=== PATIENT | female | born 1945 | race Caucasian/White ===

== ENCOUNTER → 2016-12-29 | Outpatient (CLI) | payer MEDICARE ==
--- NOTE | 2017-01-03 07:50 | MM ---
Reason for exam: screening (asymptomatic). Last mammogram was performed 2 years ago. History: Patient is postmenopausal. Took hormonal contraceptives for 6 months beginning at age 21. Took estrogen for 13 years beginning at age 43. Took progesterone for 13 years beginning at age 43. Physical Findings: A clinical breast exam by your physician is recommended on an annual basis and results should be correlated with mammographic findings. MG 3D Screening Mammo W/Cad Bilateral CC and MLO view(s) were taken. Prior study comparison: December 22, 2014, bilateral MG screening mammo w CAD. December 17, 2013, bilateral MG screening mammo w CAD. There are scattered fibroglandular densities. No significant changes when compared with prior studies. ASSESSMENT: Benign, BI-RAD 2 RECOMMENDATION: Routine screening mammogram of both breasts in 1 year.
== END | disposition home or self-care (01) ==
LOC: RADMAMWWP 11:21
PROVIDERS: ATTEND Family Medicine
DX: Z12.31 Encounter for screening mammogram for malignant neoplasm of breast (principal)
CPT/HCPCS: 77063; G0202

== ENCOUNTER → 2019-12-09 | Outpatient (CLI) | payer MEDICARE ==
--- NOTE | 2019-12-11 11:31 | MM ---
Reason for exam: screening (asymptomatic). Last mammogram was performed 2 years and 11 months ago. History: Patient is postmenopausal. Took hormonal contraceptives for 6 months beginning at age 21. Took estrogen for 13 years beginning at age 43. Took progesterone for 13 years beginning at age 43. Physical Findings: A clinical breast exam by your physician is recommended on an annual basis and results should be correlated with mammographic findings. MG 3D Screening Mammo W/Cad Bilateral CC and MLO view(s) were taken. Prior study comparison: December 29, 2016, bilateral MG 3d screening mammo w/cad. December 22, 2014, bilateral MG screening mammo w CAD. There are scattered fibroglandular densities. No significant changes when compared with prior studies. ASSESSMENT: Benign, BI-RAD 2 RECOMMENDATION: Routine screening mammogram of both breasts in 1 year.
--- NOTE | 2019-12-11 16:10 | BD ---
EXAMINATION TYPE: Axial Bone Density DATE OF EXAM: 12/09/2019 COMPARISON: NONE CLINICAL HISTORY: 74-year-old female postmenopausal screening Height: 66.5 Weight: 237.1 FRAX RISK QUESTIONS: Alcohol (3 or more units per day): no Family History (Parent hip fracture): no Glucocorticoids (More than 3mos): no (Ex: prednisone, prednisolone, methylprednisolone, dexamethasone, and hydrocortisone). History of Fracture in Adulthood: yes Secondary Osteoporosis: 1. Type 1 Diabetes: no 2. Hyperthyroidism: no 3. Menopause before 45: yes 4. Malnutrition: no 5. Chronic liver disease: no Rheumatoid Arthritis: no Current Tobacco Use: no RISK FACTORS HISTORY OF: History of Wrist Fracture: yes-left When: 5 years ago Family History of Osteoporosis: yes Active: no Diet low in dairy products/other sources of calcium: yes Postmenopausal woman: age 43 Lost more than 2 inches in height since high school: yes Frequent falls: no MEDICATIONS: gabapentin, losartan, prevacid, glaucoma meds Osteoporosis Medications: fosamax How Lon years Additional Medications: Additional History: EXAM MEASUREMENTS: Bone mineral densitometry was performed using the Vtap System. Bone mineral density as measured about the Lumbar spine is: ----- L1-L4(G/cm2): 1.383 T Score Values are as follows: ----- L2: 3.4 ----- L3: 2.3 ----- L4: 1.3 ----- L1-L4: 1.7 Bone mineral density has: increased 8.1 % since study of: 11.13.2009 Bone mineral density about the R hip (g/cm2): 0.897 Bone mineral density about the L hip (g/cm2): 0.849 T Score values are as follows: -----R Neck: -1.0 -----L Neck: -1.4 -----R Total: 0.0 -----L Total: -0.1 Bone mineral density has: decreased -6.4 % since study of: 11.13.2009 IMPRESSION: Osteopenia (T Score between -2.5 and -1). There is slightly increased risk of fracture and the patient may be considered for treatment. Re-Screen 2-5 years. NOTE: T-SCORE=SD OF THE YOUNG ADULT MEAN.
== END | disposition home or self-care (01) ==
LOC: RADMAMWWP 15:02
PROVIDERS: ATTEND Family Medicine
DX: Z12.31 Encounter for screening mammogram for malignant neoplasm of breast (principal); M85.80 Other specified disorders of bone density and structure, unspecified site; Z78.0 Asymptomatic menopausal state
CPT/HCPCS: 77063; 77067; 77080

== ENCOUNTER → 2019-12-17 | Outpatient (CLI) | payer MEDICARE ==
[~2019-12-17] MED LIST: SODIUM CHLORIDE 0.9% 500 ML 500 ML in EMPTY BAG 1 BAG IV PRN; ZOLEDRONIC ACID 5 MG in SODIUM CHLORIDE 0.9% 100 ML IV NR
[2019-12-17 12:51] VITALS: BP 157/83; PULSE 81; RESP 16; TEMP 97.9
== END | disposition home or self-care (01) ==
LOC: PROCWHC3 12:17
PROVIDERS: ATTEND Family Medicine
DX: M81.0 Age-related osteoporosis without current pathological fracture (principal)
CPT/HCPCS: 96365; J3489

== ENCOUNTER → 2020-12-09 | Outpatient (CLI) | payer MEDICARE ==
--- NOTE | 2020-12-09 16:52 | BD ---
EXAMINATION TYPE: Axial Bone Density DATE OF EXAM: 12/09/2020 COMPARISON: 12.09.2019 CLINICAL HISTORY: 75 YR OLD FEMALE......ICD-10 CODE: Z78.0 ASYMPT. MENOPAUSAL STATE Height: 65.2 Weight: 233 FRAX RISK QUESTIONS: History of Fracture in Adulthood: YES Secondary Osteoporosis: YES 3. Menopause before 45: YES RISK FACTORS HISTORY OF: History of Wrist Fracture: LT WRIST AN ADULT Family History of Osteoporosis: YES, SISTER, POSSIBLY MOM Diet low in dairy products/other sources of calcium: YES Postmenopausal woman: YES, AT AGE 43, ERT FOR 13 YRS Lost more than 2 inches in height since high school: YES Frequent falls: YES Poor Health: YES Hyperparathyroidism: NO Adrenal Insufficiency: NO MEDICATIONS: Prednisone or other steroids: NONE NOW.... IN THE PAST YES, Osteoporosis Medications: YES, RECLAST YRLY... FOR 2 YRS Additional Medications: BP MEDS, REFLUX, LIPITOR, VIT D AND CALCIUM. GABAPENTIN 3 TIMES A DAY Additional History: NEUROPATHY, CHOLESTEROL, HYPERTENSION, SCLERODERMA CREST... EXAM MEASUREMENTS: Bone mineral densitometry was performed using the [employer] System. Bone mineral density as measured about the Lumbar spine is: ----- L1-L4(G/cm2): 1.356 T Score Values are as follows: ----- L1: 0.4 ----- L2: 1.8 ----- L3: 1.6 ----- L4: 2.0 ----- L1-L4: 1.5 Bone mineral density has: Decreased -3.7% since study of: 12.09.2019 Bone mineral density about the R hip (g/cm2): 1.014 Bone mineral density about the L hip (g/cm2): 0.986 T Score values are as follows: -----R Neck: -1.1 -----L Neck: -1.4 -----R Total: 0.0 -----L Total: -0.2 Bone mineral density has: Decreased -0.2% since study of: 12.09.2019 FRAX%s: THERE IS A 22.6% CHANCE FOR A MAJOR OSTEOPOROTIC FX AND A 4.1% FOR HIP.....PROBABILITY FOR FX IN 10 YRS TIME IMPRESSION: Osteopenia (T Score between -2.5 and -1). There is slightly increased risk of fracture and the patient may be considered for treatment. Re-Screen 2-5 years. NOTE: T-SCORE=SD OF THE YOUNG ADULT MEAN.
== END | disposition home or self-care (01) ==
LOC: RADBDWWP 11-17 14:57
PROVIDERS: ATTEND Family Medicine
DX: M85.89 Other specified disorders of bone density and structure, multiple sites (principal)
CPT/HCPCS: 77080

== ENCOUNTER → 2020-12-17 | Outpatient (CLI) | payer MEDICARE ==
[2020-12-17 13:41] VITALS: BP 101/71; PULSE 73; RESP 16; TEMP 98.7
== END ==
LOC: PROCWHC3 13:05
PROVIDERS: ATTEND Family Medicine
DX: M81.0 Age-related osteoporosis without current pathological fracture (principal); Z88.0 Allergy status to penicillin; Z88.5 Allergy status to narcotic agent; Z88.1 Allergy status to other antibiotic agents
CPT/HCPCS: 96365; J3489

== ENCOUNTER 2021-01-14 10:22 | Inpatient (IN) | payer MEDICARE ==
--- NOTE | 2021-01-14 10:46 | ED ---
General Adult HPI - General Stated complaint: Fall Time Seen by Provider: 01/14/21 10:24 Source: patient, EMS, RN notes reviewed Mode of arrival: EMS Limitations: no limitations - History of Present Illness Initial comments: 75-year-old female with a past medical history of scleroderma, gangrenous right toe, hypertension, GERD, renal disease presents to the emergency room for a chief complaint of fall. Patient reports that she had a fall last night tried to get into the shower. Patient could not get up. Patient reports her is 80 is a chem 30 minutes to get her up into a chair. They then went to bed. This morning patient could not get up out of bed. They tried for quite some time but eventually did call EMS. Patient is complaining of left foot and ankle pain. She is also complaining of tailbone pain. She did hit her head yesterday but is denying headache or neck pain. Patient reports she has been struggling with immobility over the past year. States her legs have been progressively weaker because she has had angioplasty twice and has not been mobile. She is using a walker at home and lives alone with her elderly . Patient has no other complaints at this time including shortness of breath, chest pain, abdominal pain, nausea or vomiting, headache, or visual changes. - Related Data Home Medications Medication Instructions Recorded Confirmed Aspirin 81 mg PO DAILY 12/31/13 12/17/20 Lansoprazole [Prevacid] 30 mg PO DAILY 12/31/13 12/17/20 Loratadine [Claritin] 20 mg PO DAILY 12/31/13 12/17/20 Vitamin B Complex 1 tab PO DAILY 12/31/13 12/17/20 Cholecalciferol [Vitamin D3] 1 tab PO DAILY 09/11/17 12/17/20 Gabapentin [Neurontin] 400 mg PO TID 09/11/17 12/17/20 Losartan [Cozaar] 1 tab PO DAILY 09/11/17 12/17/20 Calcium Carbonate [Calcium] 600 mg PO DAILY 01/02/18 12/17/20 NIFEdipine [Procardia] 10 mg PO TID 01/16/18 12/17/20 Atorvastatin Calcium [Lipitor] 10 mg PO DAILY 12/17/20 12/17/20 Clopidogrel [Plavix] 75 mg PO DAILY 12/17/20 12/17/20 Timolol 0.5% Ophth Soln (Pf) 12/17/20 [Timoptic 0.5% Ocudose] Allergies Allergy/AdvReac Type Severity Reaction Status Date / Time codeine Allergy Rash/Hives Verified 01/14/21 10:43 levofloxacin [From Levaquin] Allergy Rash/Hives Verified 01/14/21 10:43 Penicillins Allergy Rash/Hives Verified 01/14/21 10:43 Review of Systems ROS Statement: Those systems with pertinent positive or pertinent negative responses have been documented in the HPI. ROS Other: All systems not noted in ROS Statement are negative. Past Medical History Past Medical History: Eye Disorder, GERD/Reflux, Hypertension, Osteoarthritis (OA), Renal Disease Additional Past Medical History / Comment(s): SCLERODERMA CREST,? GLUCOMA, gangrene to right toe x 2 years History of Any Multi-Drug Resistant Organisms: None Reported Additional Past Surgical History / Comment(s): L WRIST NERVE SURGERY 2017 Past Anesthesia/Blood Transfusion Reactions: No Reported Reaction Past Psychological History: No Psychological Hx Reported Smoking Status: Never smoker General Exam Limitations: no limitations General appearance: alert, in no apparent distress Head exam: Present: atraumatic Eye exam: Present: normal appearance, PERRL, EOMI. Absent: scleral icterus, conjunctival injection ENT exam: Present: normal exam, mucous membranes moist Neck exam: Present: normal inspection, full ROM. Absent: tenderness Respiratory exam: Present: normal lung sounds bilaterally. Absent: respiratory distress, wheezes Cardiovascular Exam: Present: regular rate, normal rhythm, normal heart sounds GI/Abdominal exam: Present: soft, normal bowel sounds. Absent: distended, tenderness Extremities exam: Present: tenderness (Tenderness to the dorsum of the left foot.), normal capillary refill (Capillary refill less than 2 seconds in bilateral lower extremities.), other (Sensation intact bilateral lower extrem ities.). Absent: full ROM (Patient has limited plantar and dorsi flexion of the left ankle.) Course Vital Signs 01/14/21 01/14/21 10:35 12:07 Temperature 98 F Pulse Rate 64 60 Respiratory 18 18 Rate Blood Pressure 127/56 120/69 O2 Sat by Pulse 97 98 Oximetry Medical Decision Making - Medical Decision Making Vitals are stable. Patient well-appearing. Laboratory evaluation did reveal dehydration. CT brain and C-spine shows no acute fracture or dislocation. No acute cranial hemorrhage or mass effect or midline shift. There is an indeterminate lung nodule and sclerotic density of C7, consider follow-up. Ankle and foot x-ray show no acute fracture or dislocation. Patient does have anterior displacement of the distal coccygeal segment by 6 mm that suggests a tailbone fracture. Patient unable to and night. This is secondary to a chronically weak right leg from a gangrenous infection of the toe and multiple angioplasties. Her left leg is her good leg and she cannot bear weight on the left foot. I discussed this with her and her and tried to ambulate her. She is unable to get up. They fear they will not be able to take her home. I did discuss with Dr. Infante who will admit patient. Suspect patient may require placement in a rehab facility. This was not a trauma admission because I am not admitting patient for a traumatic injury but rather for her chronic immobility exacerbated by left foot pain. - Lab Data Result diagrams: 01/14/21 10:44 01/14/21 10:44 Lab Results 01/14/21 01/14/21 Range/Units 10:44 10:44 WBC 8.9 (3.8-10.6) k/uL RBC 4.51 (3.80-5.40) m/uL Hgb 14.3 (11.4-16.0) gm/dL Hct 42.5 (34.0-46.0) % MCV 94.4 (80.0-100.0) fL MCH 31.7 (25.0-35.0) pg MCHC 33.6 (31.0-37.0) g/dL RDW 12.9 (11.5-15.5) % Plt Count 242 (150-450) k/uL MPV 7.2 Neutrophils % 75 % Lymphocytes % 14 % Monocytes % 9 % Eosinophils % 2 % Basophils % 0 % Neutrophils # 6.7 (1.3-7.7) k/uL Lymphocytes # 1.2 (1.0-4.8) k/uL Monocytes # 0.8 (0-1.0) k/uL Eosinophils # 0.1 (0-0.7) k/uL Basophils # 0.0 (0-0.2) k/uL Sodium 142 (137-145) mmol/L Potassium 4.6 (3.5-5.1) mmol/L Chloride 107 (98-107) mmol/L Carbon Dioxide 25 (22-30) mmol/L Anion Gap 10 mmol/L BUN 22 H (7-17) mg/dL Creatinine 0.90 (0.52-1.04) mg/dL Est GFR (CKD-EPI)AfAm 73 (>60 ml/min/1.73 sqM) Est GFR (CKD-EPI)NonAf 64 (>60 ml/min/1.73 sqM) Glucose 102 H (74-99) mg/dL Calcium 9.5 (8.4-10.2) mg/dL Total Bilirubin 0.6 (0.2-1.3) mg/dL AST 27 (14-36) U/L ALT 18 (4-34) U/L Alkaline Phosphatase 71 (38-126) U/L Total Protein 6.7 (6.3-8.2) g/dL Albumin 4.2 (3.5-5.0) g/dL Disposition Clinical Impression: Foot pain, Unable to ambulate, Risk for falls, Coccygeal fracture, Dehydration Disposition: ADMITTED IP TO THIS HOSP Condition: Good Is patient prescribed a controlled substance at d/c from ED?: No Referrals: Laure Maza MD [Primary Care Provider] - 1-2 days Time of Disposition: 13:08
[2021-01-14] MEDS ORDERED: ONDANSETRON 4 MG/2 ML VIAL IVP STA (10:49)
[2021-01-14] MEDS ORDERED: HYDROmorphone 0.5 MG/0.5 ML SYRINGE IVP STA (10:50)
[2021-01-14 11:01] LABS: Basophils % (A) 0 %; Eosinophils # (A) 0.1 k/uL (0-0.7); Eosinophils % (A) 2 %; HCT 42.5 % (34.0-46.0); HGB 14.3 gm/dL (11.4-16.0); Lymphocytes # (A) 1.2 k/uL (1.0-4.8); Lymphocytes % (A) 14 %; MCH 31.7 pg (25.0-35.0); MCHC 33.6 g/dL (31.0-37.0); MCV 94.4 fL (80.0-100.0); Mean Platelet Volume 7.2; Monocytes # (A) 0.8 k/uL (0-1.0); Monocytes % (A) 9 %; Neutrophils # (A) 6.7 k/uL (1.3-7.7); Neutrophils % (A) 75 %; Platelet Count 242 k/uL (150-450); RBC 4.51 m/uL (3.80-5.40); RDW 12.9 % (11.5-15.5); WBC 8.9 k/uL (3.8-10.6)
[2021-01-14 11:18] LABS: Albumin 4.2 g/dL (3.5-5.0); Calcium 9.5 mg/dL (8.4-10.2); Potassium 4.6 mmol/L (3.5-5.1); Total Bilirubin 0.6 mg/dL (0.2-1.3); Total Protein 6.7 g/dL (6.3-8.2)
--- NOTE | 2021-01-14 11:50 | CT ---
EXAMINATION TYPE: CT brain moshe rosario DATE OF EXAM: 01/14/2021 COMPARISON: HISTORY: fall CT DLP: 1519.3 mGycm Automated exposure control for dose reduction was used. TECHNIQUE: CT scan of the head and cervical spine are performed without contrast. FINDINGS: There is no acute intracranial hemorrhage, mass effect, or midline shift identified. The ventricles and sulci are within normal limits in size. Periventricular white matter shows patchy low attenuation. The globes are intact and the visualized sinuses are clear. Cervical spine is visualized in its entirety from C1 through upper thoracic levels and demonstrates n ear-anatomic alignment without evidence of acute fracture or dislocation, there is an anterolisthesis grade 1 C2-3, C3-4, loss of disc height is present especially at C4-5, C3-4, C5-6 and C6-7. Focus of sclerosis is present within the vertebral body C7., Possible bone island Prevertebral soft tissue a ppears within normal limits. There is multilevel facet arthropathy. Multilevel spondylosis is present . The C1-C2 articulation is unremarkable. There is multilevel foraminal encroachment. Incidental no te is made on axial image #106 of a subpleural nodular density measuring approximately 7 mm posterior right upper lobe. IMPRESSION: 1. There is no acute fracture or dislocation evident in the cervical spine. 2. No acute intracranial hemorrhage, mass effect, or midline shift is seen. 3. Age-related changes of atrophy and chronic small vessel ischemia suspected, degenerative disc dise ase, facet arthropathy. 4. Indeterminate atypical nodule right upper lobe and indeterminate sclerotic density C7, consider fo llow-up.
--- NOTE | 2021-01-14 11:52 | XR ---
Left ankle and left foot HISTORY: Trauma and pain 3 views of the left foot and 3 views the left ankle are submitted Bone mineralization is reduced. There is only mild soft tissue swelling present. Alignment, joint spa paula are maintained. Small plantar calcaneal spur is noted. IMPRESSION: No acute fracture or dislocation. Low bone mineralization, follow-up as indicated if occu lt fracture is suspected clinically.
--- NOTE | 2021-01-14 11:57 | XR ---
EXAMINATION TYPE: XR pelvis AP view, XR sacrum coccyx 3 views DATE OF EXAM: 01/14/2021 COMPARISON: NONE HISTORY: 75-year-old female fall on back last night, pain FINDINGS: Pelvis: Hypertrophic facet arthropathy lower lumbar spine, left greater than right. SI joints are symmetric a nd intact. Small delineation to the arcuate lines of the sacrum. There are symphysis is intact. There is mild degenerative change of both hips with prominent marginal spurring. Limited visualization of the lower left femoral neck due to external rotation of the hip. No displaced fractures are seen. Sacrum and coccyx: There appears to be anterior displacement of the distal coccygeal segment by 6 mm. IMPRESSION: 1. Pelvis: Mild bilateral hip OA. Facet arthropathy lower lumbar spine. No acute osseous abnormality seen. 2. Sacrum and coccyx: Anterior displacement of the distal coccygeal segment by 6 mm suggests an age i ndeterminate tail bone fracture.
[2021-01-14] MEDS ORDERED: ONDANSETRON 4 MG/2 ML VIAL IVP PRN (12:21)
[2021-01-14] MEDS ORDERED: NALOXONE 0.4 MG/ML 1 ML VIAL IV PRN (12:21)
[2021-01-14] MEDS: HYDROmorphone 0.5 MG/0.5 ML SYRINGE IVP PRN ×3 (13:02→23:08)
[2021-01-14] MEDS: SODIUM CHLORIDE 0.9% 1,000 ML IV SCH (13:03)
--- NOTE | 2021-01-14 18:03 | P.HPIM ---
History of Present Illness H&P Date: 01/14/21 Nani Turner, is a 75-year-old female who presented to [facility] emergency room after sustaining a fall at home is a year old male who presented to [facility] emergency room with a chief complaint of He was evaluated in the emergency room vital examination on presentation revealed a temperature of 98 pulse 64 respiration 18 blood pressure 127/56 pulse ox 97% on room air Laboratory data reveals a white blood count of 8.9 hemoglobin 14.3 platelet count 242 sodium 142 potassium 4.6 chloride 107 CO2 25 BUN 22 creatinine 0.9 Lemon virus PCR was negative Testing in the emergency room revealed computed tomography scan of the brain and cervical spine was done in the emergency room without contrast and revealed no evidence of acute fracture or dislocation in the cervical spine no acute intracranial hemorrhage or mass affect there was indeterminate atypical nodule in the right upper lobe measuring 7 mm and indeterminate sclerotic density on C7 x-ray of the sacrum revealed evidence of anterior displacement of the distal coccygeal segment by 6 mm Patient was admitted to medical floor for further evaluation and treatment Past medical history is significant for history of hypertension, history of gastroesophageal reflux disease, history of hyperlipidemia, history of osteoarthritis and history of scleroderma, 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 On review of systems patient was seen and examined on the medical floor, she is alert and oriented x 3 in no distress, she is complaining of severe pain in the left foot with inability to stand or walk otherwise she denies any complaints there is no fever or chills no headache or dizziness no chest pain no shortness of breath no palpitation no cough no nausea or vomiting no abdominal pain no diarrhea no blood in the stools no burning with urination no frequency or urgency and no hematuria, there is no weakness or numbness in any of the extremities no change in vision speech. Past Medical History Past Medical History: Eye Disorder, GERD/Reflux, Hypertension, Osteoarthritis (OA), Renal Disease Additional Past Medical History / Comment(s): SCLERODERMA CREST,? GLUCOMA, gangrene to right toe x 2 years History of Any Multi-Drug Resistant Organisms: None Reported Additional Past Surgical History / Comment(s): L WRIST NERVE SURGERY 2017 Past Anesthesia/Blood Transfusion Reactions: No Reported Reaction Past Psychological History: No Psychological Hx Reported Smoking Status: Never smoker Past Alcohol Use History: None Reported Past Drug Use History: None Reported - Past Family History Mother Family Medical History: Myocardial Infarction (DC) Medications and Allergies Home Medications Medication Instructions Recorded Confirmed Type Aspirin 81 mg PO DAILY 12/31/13 01/14/21 History Lansoprazole [Prevacid] 30 mg PO DAILY 12/31/13 01/14/21 History Loratadine [Claritin] 10 mg PO DAILY 12/31/13 01/14/21 History Vitamin B Complex 1 tab PO DAILY 12/31/13 01/14/21 History Gabapentin [Neurontin] 400 mg PO TID 09/11/17 01/14/21 History Losartan [Cozaar] 25 mg PO DAILY 09/11/17 01/14/21 History Calcium Carbonate [Calcium] 600 mg PO DAILY 01/02/18 01/14/21 History Clopidogrel [Plavix] 75 mg PO DAILY 12/17/20 01/14/21 History Timolol 0.5% Ophth Soln (Pf) 1 drop BOTH EYES BID 12/17/20 01/14/21 History [Timoptic 0.5% Ocudose] Atorvastatin [Lipitor] 20 mg PO HS 01/14/21 01/14/21 History Cholecalciferol [Vitamin D3 (25 25 mcg PO DAILY 01/14/21 01/14/21 History Mcg = 1000 Iu)] Multivitamins, Thera [Multivitamin 1 tab PO DAILY 01/14/21 01/14/21 History (formulary)] NIFEdipine XL [Procardia Xl] 30 mg PO DAILY 01/14/21 01/14/21 History Allergies Allergy/AdvReac Type Severity Reaction Status Date / Time codeine Allergy Rash/Hives Verified 01/14/21 13:24 levofloxacin [From Levaquin] Allergy Rash/Hives Verified 01/14/21 13:24 Penicillins Allergy Rash/Hives Verified 01/14/21 13:24 Physical Exam Vitals: Vital Signs Temp Pulse Pulse Resp BP BP Pulse Ox 01/14/21 13:51 97.8 F 65 18 126/67 94 L 01/14/21 13:30 97.7 F 56 L 17 127/62 98 01/14/21 12:07 60 18 120/69 98 01/14/21 10:35 98 F 64 18 127/56 97 Intake and Output 01/14/21 01/14/2101/14/21 06:59 14:59 22:59 Other: Weight 106.594 kg In general patient is alert and oriented x 3 in no distress HEENT head normocephalic and atraumatic Neck is supple no JVD no goiter no lymphadenopathy no carotid bruit Chest examination is clear to auscultation no crackles no wheezing Cardiac exam reveals regular heart sounds S1 and S2 no gallops no murmurs Abdomen is soft nontender no organomegaly with normal bowel sounds Extremity exam reveals no edema no cyanosis there is an area of scabbed ulcer on the right great toe measuring half centimeter in diameter Neurological examination reveals no gross focal deficits Results CBC & Chem 7: 01/14/21 10:44 01/14/21 10:44 Labs: Abnormal Lab Results - Last 24 Hours (Table) 01/14/21 Range/Units 10:44 BUN 22 H (7-17) mg/dL Glucose 102 H (74-99) mg/dL Thrombosis Risk Factor Assmnt - Choose All That Apply Each Factor Represents 1 point: Obesity (BMI >25) Thrombosis Risk Factor Assessment Total Risk Factor Score: 1 Thrombosis Risk Factor Assessment Level: Low Risk Assessment and Plan Plan: 1. Fall with coccygeal fracture 2. Dehydration, with prerenal azotemia 3. Inability to stand and walk 4. Foot pain, left without evidence of fracture on x-ray 5. Incidental finding of a 7 mm lung nodule, close follow-up is recommended. 6. Incidental finding of a sclerotic area on C7 7. Underlying history of hypertension 8. Underlying history of hyperlipidemia 9. Underlying history of osteoarthritis 10. Underlying history of scleroderma 11. History of gangrene with open ulcer on the right great toe for the last 2 years treated conservatively almost healed At this time patient is not able to stand or walk She is admitted to medical floor She will be hydrated gently Orthopedic consultation will be requested Physical therapy and occupational therapy consult requested Will follow closely
[2021-01-14] MEDS: ATORVASTATIN 20 MG TAB PO SCH (21:08)
[2021-01-14] MEDS: TIMOLOL 0.5% OPHTH DROPS 5 ML BTL BOTH EYES SCH (21:09)
[2021-01-14] MEDS: GABAPENTIN 400 MG CAP PO SCH (21:09)
[2021-01-15] MEDS: HYDROmorphone 0.5 MG/0.5 ML SYRINGE IVP PRN ×4 (02:25→22:31)
[2021-01-15] MEDS: ACETAMINOPHEN TAB 325 MG TAB PO PRN (04:22)
[2021-01-15] MEDS: SODIUM CHLORIDE 0.9% 1,000 ML IV SCH ×3 (05:07→23:39)
[2021-01-15] MEDS: CALCIUM CARBONATE 500 MG CHEWABLE PO SCH (08:34)
[2021-01-15] MEDS: MULTIVITAMINS, THERA 1 EACH TAB PO SCH (08:34)
[2021-01-15] MEDS: LORATADINE 10 MG TAB PO SCH (08:34)
[2021-01-15] MEDS: CLOPIDOGREL 75 MG TAB PO SCH (08:34)
[2021-01-15] MEDS: LOSARTAN 25 MG TAB PO SCH (08:34)
[2021-01-15] MEDS: GABAPENTIN 400 MG CAP PO SCH ×3 (08:35→21:05)
[2021-01-15] MEDS: CHOLECALCIFEROL 25 MCG (1000 IU) TABLET PO SCH (08:35)
[2021-01-15] MEDS: TIMOLOL 0.5% OPHTH DROPS 5 ML BTL BOTH EYES SCH ×2 (08:35→21:08)
[2021-01-15] MEDS: NIFEdipine XL 30 MG TAB.ER.24 PO SCH (08:35)
[2021-01-15] MEDS: ENOXAPARIN 40 MG/0.4 ML SYRINGE SQ SCH (08:35)
[2021-01-15] MEDS: ASPIRIN 81 MG PO SCH (08:35)
[2021-01-15] MEDS: PANTOPRAZOLE 40 MG TABLET PO SCH (08:35)
[2021-01-15] MEDS ORDERED: NON FORMULARY DRUG (Vitamin B Complex [Vitamin B Complex] 1 EACH Capsule) PO SCH (09:00)
--- NOTE | 2021-01-15 10:01 | P.PN ---
Subjective Progress Note Date: 01/15/21 Nani Turner, is a 75-year-old female who presented to [facility] emergency room after sustaining a fall at home is a year old male who presented to [facility] emergency room with a chief complaint of He was evaluated in the emergency room vital examination on presentation revealed a temperature of 98 pulse 64 respiration 18 blood pressure 127/56 pulse ox 97% on room air Laboratory data reveals a white blood count of 8.9 hemoglobin 14.3 platelet count 242 sodium 142 potassium 4.6 chloride 107 CO2 25 BUN 22 creatinine 0.9 Lemon virus PCR was negative Testing in the emergency room revealed computed tomography scan of the brain and cervical spine was done in the emergency room without contrast and revealed no evidence of acute fracture or dislocation in the cervical spine no acute intracranial hemorrhage or mass affect there was indeterminate atypical nodule in the right upper lobe measuring 7 mm and indeterminate sclerotic density on C7 x-ray of the sacrum revealed evidence of anterior displacement of the distal coccygeal segment by 6 mm Patient was admitted to medical floor for further evaluation and treatment Past medical history is significant for history of hypertension, history of gastroesophageal reflux disease, history of hyperlipidemia, history of osteoarthritis and history of scleroderma, 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 On review of systems patient was seen and examined on the medical floor, she is alert and oriented x 3 in no distress, she is complaining of severe pain in the left foot with inability to stand or walk otherwise she denies any complaints there is no fever or chills no headache or dizziness no chest pain no shortness of breath no palpitation no cough no nausea or vomiting no abdominal pain no diarrhea no blood in the stools no burning with urination no frequency or urg ency and no hematuria, there is no weakness or numbness in any of the extremities no change in vision speech. On 01/15/2021 patient's alert and oriented 3. Patient reports she was having some discomfort throughout the night. Patient is maintained on Dilaudid with some relief. Patient was evaluated by orthopedic services awaiting further recommendation. Plan for rehab upon discharge. PT OT has been consulted. Patient denies chest pain or shortness of breath. Patient denies nausea vomitin g or diarrhea. Patient denies any urinary burning or frequency. Repeat labs have been ordered Objective - Vital Signs Vital signs: Vital Signs Temp 98.2 F 01/15/21 05:00 Pulse 83 01/15/21 05:00 Resp 20 01/15/21 05:00 BP 114/72 01/15/21 05:00 Pulse Ox 97 01/15/21 05:00 Intake & Output 01/14/21 01/15/21 01/15/21 18:59 06:59 18:59 Intake Total 540 100 Balance 540 100 Weight 106.594 kg Intake: Oral 540 100 Other: Voiding Method Bedpan # Voids 2 5 - Exam In general patient is alert and oriented x 3 in no distress HEENT head normocephalic and atraumatic Neck is supple no JVD no goiter no lymphadenopathy no carotid bruit Chest examination is clear to auscultation no crackles no wheezing Cardiac exam reveals regular heart sounds S1 and S2 no gallops no murmurs Abdomen is soft nontender no organomegaly with normal bowel sounds Extremity exam reveals no edema no cyanosis there is an area of scabbed ulcer on the right great toe measuring half centimeter in diameter Neurological examination reveals no gross focal deficits - Labs CBC & Chem 7: 01/14/21 10:44 01/14/21 10:44 Labs: Abnormal Lab Results - Last 24 Hours (Table) 01/14/21 Range/Units 10:44 BUN 22 H (7-17) mg/dL Glucose 102 H (74-99) mg/dL Assessment and Plan Plan: 1. Fall with coccygeal fracture 2. Dehydration, with prerenal azotemia 3. Inability to stand and walk 4. Foot pain, left without evidence of fracture on x-ray 5. Incidental finding of a 7 mm lung nodule, close follow-up is recommended. 6. Incidental finding of a sclerotic area on C7 7. Underlying history of hypertension 8. Underlying history of hyperlipidemia 9. Underlying history of osteoarthritis 10. Underlying history of scleroderma 11. History of gangrene with open ulcer on the right great toe for the last 2 years treated conservatively almost healed At this time patient is not able to stand or walk She is admitted to medical floor She will be hydrated gently Orthopedic consultation will be requested Physical therapy and occupational therapy consult requested Plan for discharge to rehab when medically cleared Will follow closely
[2021-01-15 10:55] LABS: Basophils % (A) 0 %; Eosinophils # (A) 0.1 k/uL (0-0.7); Eosinophils % (A) 2 %; HGB 12.3 gm/dL (11.4-16.0); Lymphocytes # (A) 1.9 k/uL (1.0-4.8); Lymphocytes % (A) 25 %; MCH 30.6 pg (25.0-35.0); MCHC 31.5 g/dL (31.0-37.0); MCV 97.1 fL (80.0-100.0); Mean Platelet Volume 7.5; Monocytes # (A) 0.8 k/uL (0-1.0); Monocytes % (A) 11 %; Neutrophils # (A) 4.7 k/uL (1.3-7.7); Neutrophils % (A) 61 %; Platelet Count 237 k/uL (150-450); RBC 4.01 m/uL (3.80-5.40); RDW 12.9 % (11.5-15.5); WBC 7.6 k/uL (3.8-10.6)
[2021-01-15 11:24] LABS: ALT 14 U/L (4-34); AST 23 U/L (14-36); African American GFR (CKD) 63 (>60 ml/min/1.73 sqM); Albumin 3.4 g/dL (3.5-5.0); Albumin/Globulin Ratio 1.5; Alkaline Phosphatase 58 U/L (38-126); Anion Gap 8 mmol/L; Blood Urea Nitrogen 22 mg/dL (7-17); Carbon Dioxide 25 mmol/L (22-30); Chloride 105 mmol/L (98-107); Globulin 2.3 g/dL; Glucose 102 mg/dL (74-99); Non-African American GFR(CKD) 55 (>60 ml/min/1.73 sqM); Potassium 4.5 mmol/L (3.5-5.1); Sodium 138 mmol/L (137-145); Total Bilirubin 0.5 mg/dL (0.2-1.3); Total Protein 5.7 g/dL (6.3-8.2)
--- NOTE | 2021-01-15 16:26 | P.CNOR ---
History of Present Illness - [facility] Consult date: 01/15/21 Consult reason: other (Left foot pain, tailbone pain) History of present illness: Patient is a 75-year-old female who presented to [facility] on 01/14/2021 for further evaluation after sustaining a fall at home the day before. Patient was apparently trying to get in the shower when she fell. It took multiple times by her to get her up in the bed. Following day she was unable to get out of bed due to the amount of pain. EMS was contacted patient was brought to the hospital for further evaluation. Hospital imaging and lab tests were done upon arrival. Patient was admitted under internal medicine due to her inability to ambulate and pain involving the tailbone and left foot region. Patient has a very extensive medical history. Orthopedic team was consulted with regards to abnormal x-ray findings of the tailbone and also her left foot pain. Patient was evaluated today at bedside, she was resting comfortably in her hospital bed. She notes discomfort in the tailbone region, she notices mainly when she tries to ambulate. She also has left foot pain, she cannot pinpoint area of pain in the whole foot is very sensitive at this time. He states that even with the blankets touching her left foot it is severely painful, and improves when nothing is touching the foot. Patient denies any pain involving the bilateral upper extremities or bilateral lower extremities sized left foot. Patient denies any new onset cervical, thoracic and lumbar pain. Patient does have a history of neuropathy that affects the bilateral lower extremities, she denies any numbness or tingling in bilateral upper extremities. She denies any changes involvin bowel or bladder function. Patient does live in [place] and during the winter and has several doctors there, this including neurology and vascular surgery. She also sees a neurologist in vascular surgeon in [place]. Patient has had previous vascular surgery done to the right lower extremity. She has a chronic wound involving the right great toe that wound care is following for many years. She has a history of raynauds disease. Review of Systems Constitutional: Reports as per HPI Past Medical History Past Medical History: Eye Disorder, GERD/Reflux, Hypertension, Osteoarthritis (OA), Renal Disease Additional Past Medical History / Comment(s): SCLERODERMA CREST,? GLUCOMA, gangrene to right toe x 2 years History of Any Multi-Drug Resistant Organisms: None Reported Additional Past Surgical History / Comment(s): L WRIST NERVE SURGERY 2017 Past Anesthesia/Blood Transfusion Reactions: No Reported Reaction Past Psychological History: No Psychological Hx Reported Smoking Status: Never smoker Past Alcohol Use History: None Reported Past Drug Use History: None Reported - Past Family History Mother Family Medical History: Myocardial Infarction (MA) Medications and Allergies Home Medications Medication Instructions Recorded Confirmed Type Aspirin 81 mg PO DAILY 12/31/13 01/14/21 History Lansoprazole [Prevacid] 30 mg PO DAILY 12/31/13 01/14/21 History Loratadine [Claritin] 10 mg PO DAILY 12/31/13 01/14/21 History Vitamin B Complex 1 tab PO DAILY 12/31/13 01/14/21 History Gabapentin [Neurontin] 400 mg PO TID 09/11/17 01/14/21 History Losartan [Cozaar] 25 mg PO DAILY 09/11/17 01/14/21 History Calcium Carbonate [Calcium] 600 mg PO DAILY 01/02/18 01/14/21 History Clopidogrel [Plavix] 75 mg PO DAILY 12/17/20 01/14/21 History Timolol 0.5% Ophth Soln (Pf) 1 drop BOTH EYES BID 12/17/20 01/14/21 History [Timoptic 0.5% Ocudose] Atorvastatin [Lipitor] 20 mg PO HS 01/14/21 01/14/21 History Cholecalciferol [Vitamin D3 (25 25 mcg PO DAILY 01/14/21 01/14/21 History Mcg = 1000 Iu)] Multivitamins, Thera [Multivitamin 1 tab PO DAILY 01/14/21 01/14/21 History (formulary)] NIFEdipine XL [Procardia Xl] 30 mg PO DAILY 01/14/21 01/14/21 History Allergies Allergy/AdvReac Type Severity Reaction Status Date / Time codeine Allergy Rash/Hives Verified 01/14/21 13:24 levofloxacin [From Levaquin] Allergy Rash/Hives Verified 01/14/21 13:24 Penicillins Allergy Rash/Hives Verified 01/14/21 13:24 Physical Examination Gen: AOx3, NAD VSS stable at this time Integument: There are no obvious skin changes, this including erythema, sores or open lesions involving the cervical, thoracic, lumbar, sacral region. No skin changes present in the left lower extremity including foot Palpation: Patient is nontender with palpation in the midline paraspinal region of the cervical, thoracic and lumbar spine. She is tender with palpation in the tailbone. Patient has significant tenderness with palpation throughout most of the dorsal aspect of the left foot, she she's nontender with palpation along the medial and lateral malleolus, proximal lower leg, knee, proximal femur. No point tenderness appreciated of the bilateral upper extremities ROM: Range of motion is intact in all major muscle groups in the bilateral upper extremities Range of motion is intact in bilateral lower extremities with regards to hip flexion, knee extension, knee flexion. Patient does have difficulty with plantar flexion, dorsiflexion, EHL and FHL at the bilateral lower extremities, she states this is due to her neuropathy and has been difficult for years Sensory Exam: Senory exam to light touch is intact C5-T1 Senosry exam to light touch is intact L2-S1 Results - Labs Labs: Abnormal Lab Results - Last 24 Hours (Table) 01/15/21 Range/Units 10:07 BUN 22 H (7-17) mg/dL Glucose 102 H (74-99) mg/dL Total Protein 5.7 L (6.3-8.2) g/dL Albumin 3.4 L (3.5-5.0) g/dL H & H 01/14/21 01/15/21 Range/Units 10:44 10:07 Hgb 14.3 12.3 (11.4-16.0) gm/dL Hct 42.5 39.0 (34.0-46.0) % Result Diagrams: 01/15/21 10:07 01/15/21 10:07 - Diagnostic results Hip x-ray: report reviewed, image reviewed (Pelvis x-rays demonstrate no acute abnormalities bilateral hips, hip joints are intact) Ankle/Foot x-ray: report reviewed, image reviewed (X-rays were reviewed of the left foot/ankle. No acute fractures or dislocations. There is no widening of the mortise joint, there is no obvious talar tilt appreciated) Lumbar MRI with contrast: report reviewed, image reviewed (Sacrum and coccyx x- rays do demonstrate a potential displacement of the distal coccyx, acute versus chronic) Assessment and Plan Assessment: Left foot pain Left foot/ankle osteopenia Distal coccyx segment ventral displacement, acute versus chronic fracture Bilateral lower extremity neuropathy History of Raynauds Syndrome Multiple medical comorbidities Plan: Dr. Kent was available today to examine the patient and discussed treatment. No orthopedic surgical intervention recommended at this time With regards to the patient's tailbone, recommend lying/sitting on soft surfaces. Weight-bear as tolerated, recommend use of walker No acute fractures are appreciated of the left foot. Presenting almost as a exacerbation of her neuropathy versus raynauds. Recommend gentle exercise of the left lower extremity. This patient's continued to worsen recommend vascular consult for further recommendations Pain management per primary medical service GI and DVT prophylaxis per primary medical service Other medical 's recommendations We'll be available for any further questions regarding this patient Time with Patient: Less than 30
[2021-01-15] MEDS: ATORVASTATIN 20 MG TAB PO SCH (21:05)
[2021-01-16] MEDS: HYDROmorphone 0.5 MG/0.5 ML SYRINGE IVP PRN ×4 (02:46→22:30)
[2021-01-16 06:56] LABS: Basophils % (A) 0 %; Eosinophils # (A) 0.1 k/uL (0-0.7); Eosinophils % (A) 2 %; HCT 38.6 % (34.0-46.0); HGB 12.6 gm/dL (11.4-16.0); Lymphocytes # (A) 1.7 k/uL (1.0-4.8); Lymphocytes % (A) 30 %; MCH 30.4 pg (25.0-35.0); MCHC 32.6 g/dL (31.0-37.0); MCV 93.2 fL (80.0-100.0); Mean Platelet Volume 7.4; Monocytes # (A) 0.5 k/uL (0-1.0); Monocytes % (A) 9 %; Neutrophils # (A) 3.2 k/uL (1.3-7.7); Neutrophils % (A) 56 %; Platelet Count 229 k/uL (150-450); RBC 4.14 m/uL (3.80-5.40); RDW 13.3 % (11.5-15.5); WBC 5.7 k/uL (3.8-10.6)
[2021-01-16] MEDS: NIFEdipine XL 30 MG TAB.ER.24 PO SCH (08:06)
[2021-01-16] MEDS: LORATADINE 10 MG TAB PO SCH (08:06)
[2021-01-16] MEDS: LOSARTAN 25 MG TAB PO SCH (08:06)
[2021-01-16] MEDS: PANTOPRAZOLE 40 MG TABLET PO SCH (08:06)
[2021-01-16] MEDS: GABAPENTIN 400 MG CAP PO SCH ×3 (08:06→20:06)
[2021-01-16] MEDS: MULTIVITAMINS, THERA 1 EACH TAB PO SCH (08:06)
[2021-01-16] MEDS: CALCIUM CARBONATE 500 MG CHEWABLE PO SCH (08:06)
[2021-01-16] MEDS: CHOLECALCIFEROL 25 MCG (1000 IU) TABLET PO SCH (08:07)
[2021-01-16] MEDS: ASPIRIN 81 MG PO SCH (08:07)
[2021-01-16] MEDS: ENOXAPARIN 40 MG/0.4 ML SYRINGE SQ SCH (08:07)
[2021-01-16] MEDS: CLOPIDOGREL 75 MG TAB PO SCH (08:07)
[2021-01-16] MEDS: TIMOLOL 0.5% OPHTH DROPS 5 ML BTL BOTH EYES SCH ×2 (08:21→20:07)
[2021-01-16] MEDS: SODIUM CHLORIDE 0.9% 1,000 ML IV SCH ×2 (08:22→17:06)
[2021-01-16 10:57] LABS: Albumin 3.7 g/dL (3.80-4.90); Albumin/Globulin Ratio 2.31 (1.60-3.17); Anion Gap 7.5 mmol/L (4.00-12.00); BUN/Creat Ratio 18.89 Ratio (12.00-20.00); Calcium 8.9 mg/dL (8.7-10.3); Carbon Dioxide 26.5 mmol/L (21.6-31.8); Globulin 1.6 g/dL (1.6-3.3); Potassium 4.4 mmol/L (3.5-5.5); Total Bilirubin 0.5 mg/dL (0.2-1.2); Total Protein 5.3 g/dL (6.2-8.2)
[2021-01-16] MEDS: ATORVASTATIN 20 MG TAB PO SCH (20:06)
[2021-01-17] MEDS: HYDROmorphone 0.5 MG/0.5 ML SYRINGE IVP PRN (03:47)
[2021-01-17] MEDS: ASPIRIN 81 MG PO SCH (08:57)
[2021-01-17] MEDS: GABAPENTIN 400 MG CAP PO SCH ×3 (08:57→20:10)
[2021-01-17] MEDS: PANTOPRAZOLE 40 MG TABLET PO SCH (08:57)
[2021-01-17] MEDS: CHOLECALCIFEROL 25 MCG (1000 IU) TABLET PO SCH (08:57)
[2021-01-17] MEDS: CALCIUM CARBONATE 500 MG CHEWABLE PO SCH (08:57)
[2021-01-17] MEDS: LORATADINE 10 MG TAB PO SCH (08:57)
[2021-01-17] MEDS: CLOPIDOGREL 75 MG TAB PO SCH (08:57)
[2021-01-17] MEDS: TIMOLOL 0.5% OPHTH DROPS 5 ML BTL BOTH EYES SCH ×2 (08:58→20:11)
[2021-01-17] MEDS: NIFEdipine XL 30 MG TAB.ER.24 PO SCH (08:58)
[2021-01-17] MEDS: MULTIVITAMINS, THERA 1 EACH TAB PO SCH (08:58)
[2021-01-17] MEDS: LOSARTAN 25 MG TAB PO SCH (08:58)
[2021-01-17] MEDS: ENOXAPARIN 40 MG/0.4 ML SYRINGE SQ SCH (08:58)
[2021-01-17] MEDS: SODIUM CHLORIDE 0.9% 1,000 ML IV SCH (08:59)
--- NOTE | 2021-01-17 11:30 | P.PN ---
Subjective Progress Note Date: 01/17/21 Nani Turner, is a 75-year-old female who presented to [facility] emergency room after sustaining a fall at home is a year old male who presented to [facility] emergency room with a chief complaint of He was evaluated in the emergency room vital examination on presentation revealed a temperature of 98 pulse 64 respiration 18 blood pressure 127/56 pulse ox 97% on room air Laboratory data reveals a white blood count of 8.9 hemoglobin 14.3 platelet count 242 sodium 142 potassium 4.6 chloride 107 CO2 25 BUN 22 creatinine 0.9 Lemon virus PCR was negative Testing in the emergency room revealed computed tomography scan of the brain and cervical spine was done in the emergency room without contrast and revealed no evidence of acute fracture or dislocation in the cervical spine no acute intracranial hemorrhage or mass affect there was indeterminate atypical nodule in the right upper lobe measuring 7 mm and indeterminate sclerotic density on C7 x-ray of the sacrum revealed evidence of anterior displacement of the distal coccygeal segment by 6 mm Patient was admitted to medical floor for further evaluation and treatment Past medical history is significant for history of hypertension, history of gastroesophageal reflux disease, history of hyperlipidemia, history of osteoarthritis and history of scleroderma, 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 On review of systems patient was seen and examined on the medical floor, she is alert and oriented x 3 in no distress, she is complaining of severe pain in the left foot with inability to stand or walk otherwise she denies any complaints there is no fever or chills no headache or dizziness no chest pain no shortness of breath no palpitation no cough no nausea or vomiting no abdominal pain no diarrhea no blood in the stools no burning with urination no frequency or urg ency and no hematuria, there is no weakness or numbness in any of the extremities no change in vision speech. On 01/15/2021 patient's alert and oriented 3. Patient reports she was having some discomfort throughout the night. Patient is maintained on Dilaudid with some relief. Patient was evaluated by orthopedic services awaiting further recommendation. Plan for rehab upon discharge. PT OT has been consulted. Patient denies chest pain or shortness of breath. Patient denies nausea vomitin g or diarrhea. Patient denies any urinary burning or frequency. Repeat labs have been ordered On 01/17/2021 patient is alert and oriented 3. Patient reports that she is having some discomfort throughout night tramadol added. At this time patient denies chest pain or shortness of breath. Patient denies nausea vomiting or diarrhea. Patient denies any urinary burning or frequency. Tentative plans for discharge to rehab tomorrow Objective - Vital Signs Vital signs: Vital Signs Temp 97.8 F 01/17/21 04:38 Pulse 80 01/17/21 09:11 Resp 16 01/17/21 08:50 BP 136/77 01/17/21 09:11 Pulse Ox 92 L 01/17/21 04:38 Intake & Output 01/16/21 01/17/21 01/17/21 18:59 06:59 18:59 Intake Total 240 1140 Output Total 2300 Balance 240 -1160 Intake: Intake, IV Titration 600 Amount Sodium Chloride 0.9% 1, 600 000 ml @ 75 mls/hr IV . [id number] Rx#:[id number] Oral 240 540 Output: Urine 2300 Other: Voiding Method Bedpan Bedpan Bedpan # Voids 2 0 - Exam In general patient is alert and oriented x 3 in no distress HEENT head normocephalic and atraumatic Neck is supple no JVD no goiter no lymphadenopathy no carotid bruit Chest examination is clear to auscultation no crackles no wheezing Cardiac exam reveals regular heart sounds S1 and S2 no gallops no murmurs Abdomen is soft nontender no organomegaly with normal bowel sounds Extremity exam reveals no edema no cyanosis there is an area of scabbed ulcer on the right great toe measuring half centimeter in diameter Neurological examination reveals no gross focal deficits - Labs CBC & Chem 7: 01/16/21 06:22 01/16/21 06:22 Assessment and Plan Plan: 1. Fall with coccygeal fracture 2. Dehydration, with prerenal azotemia 3. Inability to stand and walk 4. Foot pain, left without evidence of fracture on x-ray 5. Incidental finding of a 7 mm lung nodule, close follow-up is recommended. 6. Incidental finding of a sclerotic area on C7 7. Underlying history of hypertension 8. Underlying history of hyperlipidemia 9. Underlying history of osteoarthritis 10. Underlying history of scleroderma 11. History of gangrene with open ulcer on the right great toe for the last 2 years treated conservatively almost healed At this time patient is not able to stand or walk She is admitted to medical floor She will be hydrated gently Orthopedic consultation will be requested Physical therapy and occupational therapy consult requested Plan for discharge to rehab when medically cleared Will follow closely
[2021-01-17] MEDS ORDERED: traMADol 50 MG TAB PO SCH (13:00)
[2021-01-17] MEDS: traMADol 50 MG TAB PO PRN (13:21)
[2021-01-17] MEDS: ATORVASTATIN 20 MG TAB PO SCH (20:10)
[2021-01-18] MEDS: traMADol 50 MG TAB PO PRN ×3 (05:10→21:03)
[2021-01-18] MEDS: SODIUM CHLORIDE 0.9% 1,000 ML IV SCH ×3 (05:51→23:46)
[2021-01-18] MEDS: GABAPENTIN 400 MG CAP PO SCH ×3 (09:27→21:03)
[2021-01-18] MEDS: CLOPIDOGREL 75 MG TAB PO SCH (09:27)
[2021-01-18] MEDS: LOSARTAN 25 MG TAB PO SCH (09:27)
[2021-01-18] MEDS: CHOLECALCIFEROL 25 MCG (1000 IU) TABLET PO SCH (09:27)
[2021-01-18] MEDS: MULTIVITAMINS, THERA 1 EACH TAB PO SCH (09:27)
[2021-01-18] MEDS: PANTOPRAZOLE 40 MG TABLET PO SCH (09:27)
[2021-01-18] MEDS: ASPIRIN 81 MG PO SCH (09:27)
[2021-01-18] MEDS: CALCIUM CARBONATE 500 MG CHEWABLE PO SCH (09:27)
[2021-01-18] MEDS: LORATADINE 10 MG TAB PO SCH (09:27)
[2021-01-18] MEDS: NIFEdipine XL 30 MG TAB.ER.24 PO SCH (09:28)
[2021-01-18] MEDS: TIMOLOL 0.5% OPHTH DROPS 5 ML BTL BOTH EYES SCH ×2 (09:28→20:20)
[2021-01-18] MEDS: ENOXAPARIN 40 MG/0.4 ML SYRINGE SQ SCH (09:29)
--- NOTE | 2021-01-18 10:13 | P.PN ---
Subjective Progress Note Date: 01/16/21 Nani Turner, is a 75-year-old female who presented to [facility] emergency room after sustaining a fall at home is a year old male who presented to [facility] emergency room with a chief complaint of He was evaluated in the emergency room vital examination on presentation revealed a temperature of 98 pulse 64 respiration 18 blood pressure 127/56 pulse ox 97% on room air Laboratory data reveals a white blood count of 8.9 hemoglobin 14.3 platelet count 242 sodium 142 potassium 4.6 chloride 107 CO2 25 BUN 22 creatinine 0.9 Lemon virus PCR was negative Testing in the emergency room revealed computed tomography scan of the brain and cervical spine was done in the emergency room without contrast and revealed no evidence of acute fracture or dislocation in the cervical spine no acute intracranial hemorrhage or mass affect there was indeterminate atypical nodule in the right upper lobe measuring 7 mm and indeterminate sclerotic density on C7 x-ray of the sacrum revealed evidence of anterior displacement of the distal coccygeal segment by 6 mm Patient was admitted to medical floor for further evaluation and treatment Past medical history is significant for history of hypertension, history of gastroesophageal reflux disease, history of hyperlipidemia, history of osteoarthritis and history of scleroderma, 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 On review of systems patient was seen and examined on the medical floor, she is alert and oriented x 3 in no distress, she is complaining of severe pain in the left foot with inability to stand or walk otherwise she denies any complaints there is no fever or chills no headache or dizziness no chest pain no shortness of breath no palpitation no cough no nausea or vomiting no abdominal pain no diarrhea no blood in the stools no burning with urination no frequency or urg ency and no hematuria, there is no weakness or numbness in any of the extremities no change in vision speech. On 01/15/2021 patient's alert and oriented 3. Patient reports she was having some discomfort throughout the night. Patient is maintained on Dilaudid with some relief. Patient was evaluated by orthopedic services awaiting further recommendation. Plan for rehab upon discharge. PT OT has been consulted. Patient denies chest pain or shortness of breath. Patient denies nausea vomitin g or diarrhea. Patient denies any urinary burning or frequency. Repeat labs have been ordered On 01/16/2021 patient's alert and oriented 3. Patient reports she was still having severe pain in the left foot and ankle. Patient is maintained on Dilaudid with some relief. Patient was evaluated by orthopedic services awaiting further recommendation. Plan for rehab upon discharge. PT OT has been consulted. Patient denies chest pain or shortness of breath. Patient denies nausea vomiting or diarrhea. Patient denies any urinary burning or frequency. Repeat labs have been ordered Objective - Vital Signs Vital signs: Vital Signs Temp 97.5 F L 01/16/21 05:00 Pulse 68 01/16/21 08:31 Resp 20 01/16/21 05:00 BP 110/62 01/16/21 08:31 Pulse Ox 95 01/16/21 05:00 Intake & Output 01/15/21 01/16/21 01/16/21 18:59 06:59 18:59 Intake Total 1080 100 Output Total 800 Balance 1080 -700 Intake: Intake, IV Titration 300 Amount Sodium Chloride 0.9% 1, 300 000 ml @ 75 mls/hr IV . [id number] [facility] Rx#:[id number] Oral 780 100 Output: Urine 800 Other: Voiding Method Bedpan Bedpan # Voids 4 - Exam In general patient is alert and oriented x 3 in no distress HEENT head normocephalic and atraumatic Neck is supple no JVD no goiter no lymphadenopathy no carotid bruit Chest examination is clear to auscultation no crackles no wheezing Cardiac exam reveals regular heart sounds S1 and S2 no gallops no murmurs Abdomen is soft nontender no organomegaly with normal bowel sounds Extremity exam reveals no edema no cyanosis there is an area of scabbed ulcer on the right great toe measuring half centimeter in diameter Neurological examination reveals no gross focal deficits - Labs CBC & Chem 7: 01/16/21 06:22 01/16/21 06:22 Labs: Abnormal Lab Results - Last 24 Hours (Table) 01/15/21 Range/Units 10:07 BUN 22 H (7-17) mg/dL Glucose 102 H (74-99) mg/dL Total Protein 5.7 L (6.3-8.2) g/dL Albumin 3.4 L (3.5-5.0) g/dL Assessment and Plan Plan: 1. Fall with coccygeal fracture 2. Dehydration, with prerenal azotemia 3. Inability to stand and walk 4. Foot pain, left without evidence of fracture on x-ray 5. Incidental finding of a 7 mm lung nodule, close follow-up is recommended. 6. Incidental finding of a sclerotic area on C7 7. Underlying history of hypertension 8. Underlying history of hyperlipidemia 9. Underlying history of osteoarthritis 10. Underlying history of scleroderma 11. History of gangrene with open ulcer on the right great toe for the last 2 years treated conservatively almost healed At this time patient is not able to stand or walk She is admitted to medical floor She will be hydrated gently Orthopedic consultation will be requested Physical therapy and occupational therapy consult requested Plan for discharge to rehab when medically cleared Will follow closely
--- NOTE | 2021-01-18 11:45 | CDI ---
Documentation Clarification Form Date: 01/18/2021 11:07:37 AM From: Hilda Jones RN CCDS Admit Date: 01/14/2021 12:21:00 PM Patient Name: Nani Turner Visit Number: [id number] Discharge Date: ATTENTION: The Clinical Documentation Specialists (CDI) and [facility] Coding Staff appreciate your assistance in clarifying documentation. Please respond to the clarification below the line at the bottom and electronically sign. The CDI & [facility] Coding staff will review the response and follow-up if needed. Please note: Queries are made part of the Legal Health Record. If you have any questions, please contact the author of this message via ITS. Dr. Josué Infante Your patient has the documented symptom of left foot pain, 01/14 H&P and 01/15 01/17 Medicine progress notes. Additional clarification regarding the etiology/cause of this symptom is requested. Patient history/risk factors: 75 y/o female presents to the ED after a fall at home having severe. Medical history osteoarthritis and scleroderma, H&P 01/14. Neuropathy, Ortho consult 01/15. Clinical Indicators: Radiology: 01/14 Left ankle - No acute fracture or dislocation. Vital Signs: 01/14 B/P 127/56, HR Other Clinical Indicators: Patient does have difficulty with plantar flexion, dorsiflexion, EHL and FHL at the bilateral lower extremities, she states this is due to her neuropathy and has been difficult for years. Orthopedic Consult ROM 01/15. Treatment: 01/14 Dilaudid 0.5 mg Ivp x 1, 01/14 to current Dilaudid 0.5mg, 01/15 to current Neurontin 400mg PO TID JETT, 01/17 to current Tramadol 50mg PO Q 6HR PRN. Medication: Consults: Ortho 01/15 Gentle exercise of left lower extremity. Please provide additional clarification regarding the etiology/cause of the pain: [ ] Left Foot Pain due to Neuropathy [ ] Left Foot Pain due to please specify Acute injury [ ] Other, please specify [ ] Unable to determine (Template Last Revised: June 2020) MTDD
--- NOTE | 2021-01-18 19:49 | P.PN ---
Subjective Progress Note Date: 01/18/21 Nani Turner, is a 75-year-old female who presented to [facility] emergency room after sustaining a fall at home is a year old male who presented to [facility] emergency room with a chief complaint of He was evaluated in the emergency room vital examination on presentation revealed a temperature of 98 pulse 64 respiration 18 blood pressure 127/56 pulse ox 97% on room air Laboratory data reveals a white blood count of 8.9 hemoglobin 14.3 platelet count 242 sodium 142 potassium 4.6 chloride 107 CO2 25 BUN 22 creatinine 0.9 Lemon virus PCR was negative Testing in the emergency room revealed computed tomography scan of the brain and cervical spine was done in the emergency room without contrast and revealed no evidence of acute fracture or dislocation in the cervical spine no acute intracranial hemorrhage or mass affect there was indeterminate atypical nodule in the right upper lobe measuring 7 mm and indeterminate sclerotic density on C7 x-ray of the sacrum revealed evidence of anterior displacement of the distal coccygeal segment by 6 mm Patient was admitted to medical floor for further evaluation and treatment Past medical history is significant for history of hypertension, history of gastroesophageal reflux disease, history of hyperlipidemia, history of osteoarthritis and history of scleroderma, 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 On review of systems patient was seen and examined on the medical floor, she is alert and oriented x 3 in no distress, she is complaining of severe pain in the left foot with inability to stand or walk otherwise she denies any complaints there is no fever or chills no headache or dizziness no chest pain no shortness of breath no palpitation no cough no nausea or vomiting no abdominal pain no diarrhea no blood in the stools no burning with urination no frequency or urg ency and no hematuria, there is no weakness or numbness in any of the extremities no change in vision speech. On 01/15/2021 patient's alert and oriented 3. Patient reports she was having some discomfort throughout the night. Patient is maintained on Dilaudid with some relief. Patient was evaluated by orthopedic services awaiting further recommendation. Plan for rehab upon discharge. PT OT has been consulted. Patient denies chest pain or shortness of breath. Patient denies nausea vomitin g or diarrhea. Patient denies any urinary burning or frequency. Repeat labs have been ordered On 01/16/2021 patient's alert and oriented 3. Patient reports she was still having severe pain in the left foot and ankle. Patient is maintained on Dilaudid with some relief. Patient was evaluated by orthopedic services awaiting further recommendation. Plan for rehab upon discharge. PT OT has been consulted. Patient denies chest pain or shortness of breath. Patient denies nausea vomiting or diarrhea. Patient denies any urinary burning or frequency. Repeat labs have been ordered On 01/17/2021 patient is alert and oriented 3. Patient reports that she is having some discomfort throughout night tramadol added. At this time patient denies chest pain or shortness of breath. Patient denies nausea vomiting or diarrhea. Patient denies any urinary burning or frequency. Tentative plans for discharge to rehab tomorrow On 01/18/2021 patient was seen and examined on the medical floor she is alert and oriented 3 in no apparent distress she is still complaining of severe pain in the left foot with inability to stand and walk on her left foot and ankle x- ray did not reveal any significant abnormality MRI of the left foot and ankle was ordered for today we are still awaiting results otherwise patient denies any complaints there is no fever or chills no headache or dizziness no chest pain no shortness of breath no cough no nausea or vomiting no abdominal pain no diarrhea and no urinary symptoms Objective - Vital Signs Vital signs: Vital Signs Temp 98.8 F 01/18/21 04:30 Pulse 73 01/18/21 04:30 Resp 18 01/18/21 04:30 BP 115/72 01/18/21 04:30 Pulse Ox 92 L 01/18/21 04:30 Intake & Output 01/17/21 01/18/21 01/18/21 18:59 06:59 18:59 Intake Total 360 500 Output Total 1200 700 Balance -840 -200 Intake: Oral 360 500 Output: Urine 1200 700 Other: Voiding Method Bedpan Bedpan - Exam In general patient is alert and oriented x 3 in no distress HEENT head normocephalic and atraumatic Neck is supple no JVD no goiter no lymphadenopathy no carotid bruit Chest examination is clear to auscultation no crackles no wheezing Cardiac exam reveals regular heart sounds S1 and S2 no gallops no murmurs Abdomen is soft nontender no organomegaly with normal bowel sounds Extremity exam reveals no edema no cyanosis there is an area of scabbed ulcer on the right great toe measuring half centimeter in diameter Neurological examination reveals no gross focal deficits - Labs CBC & Chem 7: 01/16/21 06:22 01/16/21 06:22 Assessment and Plan Plan: 1. Fall with coccygeal fracture 2. Dehydration, with prerenal azotemia 3. Inability to stand and walk 4. Foot pain, left without evidence of fracture on x-ray 5. Incidental finding of a 7 mm lung nodule, close follow-up is recommended. 6. Incidental finding of a sclerotic area on C7 7. Underlying history of hypertension 8. Underlying history of hyperlipidemia 9. Underlying history of osteoarthritis 10. Underlying history of scleroderma 11. History of gangrene with open ulcer on the right great toe for the last 2 years treated conservatively almost healed At this time patient is not able to stand or walk She is admitted to medical floor She will be hydrated gently Orthopedic consultation will be requested Physical therapy and occupational therapy consult requested Plan for discharge to rehab when medically cleared Will follow closely
[2021-01-18] MEDS: ATORVASTATIN 20 MG TAB PO SCH (20:20)
[2021-01-18] MEDS: ACETAMINOPHEN TAB 325 MG TAB PO PRN (23:51)
[2021-01-19] MEDS: HYDROmorphone 0.5 MG/0.5 ML SYRINGE IVP PRN (01:40)
--- NOTE | 2021-01-19 05:57 | MR ---
EXAMINATION TYPE: MR ankle/foot LT wo/w con DATE OF EXAM: 01/18/2021 COMPARISON: HISTORY: Fall causing sever pain in lt foot, inability to bear weight CONTRAST: Standard multiplanar, multisequence MRI departmental protocol utilizing 11 mL intravenous Gadavist ga dolinium contrast. There is mild ankle joint effusion. The collateral ligaments appear intact. Medial and lateral flexor tendons of the ankle appear intact. Achilles tendon appears intact. There is diffuse subcutaneous edema of the forefoot. This is more on the dorsum of the foot. The toes appear intact. Metatarsals appear intact. I see no evidence of a fracture. Calcaneus is inta ct. The remainder of exam is unremarkable. IMPRESSION: Mild ankle joint effusion consistent with some mild synovitis. No fracture seen. Subcutaneous edema and soft tissue swelling of the forefoot.
[2021-01-19] MEDS: CHOLECALCIFEROL 25 MCG (1000 IU) TABLET PO SCH (07:43)
[2021-01-19] MEDS: PANTOPRAZOLE 40 MG TABLET PO SCH (07:43)
[2021-01-19] MEDS: CLOPIDOGREL 75 MG TAB PO SCH (07:43)
[2021-01-19] MEDS: ENOXAPARIN 40 MG/0.4 ML SYRINGE SQ SCH (07:44)
[2021-01-19] MEDS: MULTIVITAMINS, THERA 1 EACH TAB PO SCH (07:44)
[2021-01-19] MEDS: LORATADINE 10 MG TAB PO SCH (07:44)
[2021-01-19] MEDS: GABAPENTIN 400 MG CAP PO SCH ×2 (07:44→16:01)
[2021-01-19] MEDS: TIMOLOL 0.5% OPHTH DROPS 5 ML BTL BOTH EYES SCH (07:45)
[2021-01-19] MEDS: CALCIUM CARBONATE 500 MG CHEWABLE PO SCH (09:00)
[2021-01-19] MEDS: ASPIRIN 81 MG PO SCH (09:00)
[2021-01-19] MEDS: LOSARTAN 25 MG TAB PO SCH (11:24)
[2021-01-19] MEDS: NIFEdipine XL 30 MG TAB.ER.24 PO SCH (11:25)
[2021-01-19 12:16] VITALS: BP 109/65; PULSE 53; RESP 17; TEMP 97.6
[2021-01-19] MEDS: SODIUM CHLORIDE 0.9% 1,000 ML IV SCH (13:22)
--- NOTE | 2021-01-19 14:32 | P.DS ---
Providers Date of admission: 01/14/21 12:21 Expected date of discharge: 01/19/21 Attending physician: Josué Infante Consults: 01/14/21 18:04 Consult Physician Routine Consulting Provider: Josh Go Consult Reason/Comments: Coccygeal fracture, left foot pain Do you want consulting provider notified?: Yes Primary care physician: Laure Maza [facility] Course: Diagnosis on discharge: 1. Fall with coccygeal fracture 2. Dehydration, with prerenal azotemia 3. Inability to stand and walk 4. Foot pain, left without evidence of fracture on x-ray 5. Incidental finding of a 7 mm lung nodule, close follow-up is recommended. 6. Incidental finding of a sclerotic area on C7 7. Underlying history of hypertension 8. Underlying history of hyperlipidemia 9. Underlying history of osteoarthritis 10. Underlying history of scleroderma 11. History of gangrene with open ulcer on the right great toe for the last 2 years treated conservatively almost healed Hospital course: Nani Turner, is a 75-year-old female who presented to [facility] emergency room after sustaining a fall at home is a year old male who presented to [facility] emergency room with a chief complaint of He was evaluated in the emergency room vital examination on presentation revealed a temperature of 98 pulse 64 respiration 18 blood pressure 127/56 pulse ox 97% on room air Laboratory data reveals a white blood count of 8.9 hemoglobin 14.3 platelet count 242 sodium 142 potassium 4.6 chloride 107 CO2 25 BUN 22 creatinine 0.9 Lemon virus PCR was negative Testing in the emergency room revealed computed tomography scan of the brain and cervical spine was done in the emergency room without contrast and revealed no evidence of acute fracture or dislocation in the cervical spine no acute intracranial hemorrhage or mass affect there was indeterminate atypical nodule in the right upper lobe measuring 7 mm and indeterminate sclerotic density on C7 x-ray of the sacrum revealed evidence of anterior displacement of the distal coccygeal segment by 6 mm Patient was admitted to medical floor for further evaluation and treatment Past medical history is significant for history of hypertension, history of gastroesophageal reflux disease, history of hyperlipidemia, history of osteoarthritis and history of scleroderma, 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 On review of systems patient was seen and examined on the medical floor, she is alert and oriented x 3 in no distress, she is complaining of severe pain in the left foot with inability to stand or walk otherwise she denies any complaints there is no fever or chills no headache or dizziness no chest pain no shortness of breath no palpitation no cough no nausea or vomiting no abdominal pain no diarrhea no blood in the stools no burning with urination no frequency or urgency and no hematuria, there is no weakness or numbness in any of the extremities no change in vision speech. On 01/15/2021 patient's alert and oriented 3. Patient reports she was having some discomfort throughout the night. Patient is maintained on Dilaudid with some relief. Patient was evaluated by orthopedic services awaiting further recommendation. Plan for rehab upon discharge. PT OT has been consulted. Patient denies chest pain or shortness of breath. Patient denies nausea vomiting or diarrhea. Patient denies any urinary burning or frequency. Repeat labs have been ordered On 01/16/2021 patient's alert and oriented 3. Patient reports she was still having severe pain in the left foot and ankle. Patient is maintained on Dilaudid with some relief. Patient was evaluated by orthopedic services awaiting further recommendation. Plan for rehab upon discharge. PT OT has been consulted. Patient denies chest pain or shortness of breath. Patient denies nausea vomiting or diarrhea. Patient denies any urinary burning or frequency. Repeat labs have been ordered On 01/17/2021 patient is alert and oriented 3. Patient reports that she is having some discomfort throughout night tramadol added. At this time patient denies chest pain or shortness of breath. Patient denies nausea vomiting or diarrhea. Patient denies any urinary burning or frequency. Tentative plans for discharge to rehab tomorrow On 01/18/2021 patient was seen and examined on the medical floor she is alert and oriented 3 in no apparent distress she is still complaining of severe pain in the left foot with inability to stand and walk on her left foot and ankle x- ray did not reveal any significant abnormality MRI of the left foot and ankle was ordered for today we are still awaiting results otherwise patient denies any complaints there is no fever or chills no headache or dizziness no chest pain no shortness of breath no cough no nausea or vomiting no abdominal pain no diarrhea and no urinary symptoms On 01/19/2021 patient was seen and examined on the medical floor she is still complaining of left foot pain as she denies any complaints MRI of the left foot and left ankle did not reveal any significant abnormality patient has a small effusion in the ankle joint otherwise normal MRI, patient is medically stable she will be discharged today to [facility] Patient Condition at Discharge: Good Plan - Discharge Summary New Discharge Prescriptions: New traMADol HCl [Ultram] 50 mg PO Q6HR PRN tab PRN Reason: Breakthrough Pain Continue Vitamin B Complex 1 tab PO DAILY Loratadine [Claritin] 10 mg PO DAILY Lansoprazole [Prevacid] 30 mg PO DAILY Aspirin 81 mg PO DAILY Losartan [Cozaar] 25 mg PO DAILY Gabapentin [Neurontin] 400 mg PO TID Calcium Carbonate [Calcium] 600 mg PO DAILY Clopidogrel [Plavix] 75 mg PO DAILY Timolol 0.5% Ophth Soln (Pf) [Timoptic 0.5% Ocudose] 1 drop BOTH EYES BID Atorvastatin [Lipitor] 20 mg PO HS Cholecalciferol [Vitamin D3 (25 Mcg = 1000 Iu)] 25 mcg PO DAILY Multivitamins, Thera [Multivitamin (formulary)] 1 tab PO DAILY NIFEdipine XL [Procardia XL] 30 mg PO DAILY Discharge Medication List Aspirin 81 mg PO DAILY 12/31/13 [History] Lansoprazole [Prevacid] 30 mg PO DAILY 12/31/13 [History] Loratadine [Claritin] 10 mg PO DAILY 12/31/13 [History] Vitamin B Complex 1 tab PO DAILY 12/31/13 [History] Gabapentin [Neurontin] 400 mg PO TID 09/11/17 [History] Losartan [Cozaar] 25 mg PO DAILY 09/11/17 [History] Calcium Carbonate [Calcium] 600 mg PO DAILY 01/02/18 [History] Clopidogrel [Plavix] 75 mg PO DAILY 12/17/20 [History] Timolol 0.5% Ophth Soln (Pf) [Timoptic 0.5% Ocudose] 1 drop BOTH EYES BID 12/17/20 [History] Atorvastatin [Lipitor] 20 mg PO HS 01/14/21 [History] Cholecalciferol [Vitamin D3 (25 Mcg = 1000 Iu)] 25 mcg PO DAILY 01/14/21 [History] Multivitamins, Thera [Multivitamin (formulary)] 1 tab PO DAILY 01/14/21 [History] NIFEdipine XL [Procardia XL] 30 mg PO DAILY 01/14/21 [History] traMADol HCl [Ultram] 50 mg PO Q6HR PRN tab 01/19/21 [Rx] Follow up Appointment(s)/Referral(s): Laure Maza MD [Primary Care Provider] - 1-2 days
[2021-01-19] MEDS: traMADol 50 MG TAB PO PRN (16:00)
--- NOTE | 2021-01-21 08:49 | CDI ---
Documentation Clarification Form Date: 01/21/21 From: Maribel Mcdonald Admit Date: 01/14/2021 12:21:00 PM Patient Name: Nani Turner Visit Number: [id number] Discharge Date: 01/19/2021 06:48:00 PM ATTENTION: The Clinical Documentation Specialists (CDI) and [facility] Coding Staff appreciate your assistance in clarifying documentation. Please respond to the clarification below the line at the bottom and electronically sign. The CDI & [facility] Coding staff will review the response and follow-up if needed. Please note: Queries are made part of the Legal Health Record. If you have any questions, please contact the author of this message via ITS. Dr. Josué Infante, Your patient has chronic immobility exacerbated by left foot pain per ED Note. Based on this information and the findings below, is there an additional diagnosis that is clinically appropriate for this patient? History/Risk Factors: Scleroderma, Raynaud's with almost healed ulcer of right toe, fx of coccyx, injury to left foot and ankle, bilateral lower extremity neuropathy Clinical Indicators: S/P fall getting into shower at home. Unable to get up on her own. Patient reports she has been struggling with immobility over the past year. States her legs have been progressively weaker because she has had angioplasty twice and has not been mobile. Treatment: PT/OT Discharged to SNF for rehab. Is there an additional diagnosis that is clinically appropriate for this patient? [ ] Complete Immobility due to frailty/severe debility [x ] Age related weakness or frailty - without complete immobility [ ] Generalized weakness: (please specify etiology if known) [ ] Other (please specify) [ ] Unable to determine MTDD
--- NOTE | 2021-02-01 13:45 | CDI ---
Documentation Clarification Form Date: 02/01/2021 01:26:30 PM From: Hilda Jones RN CCDS Admit Date: 01/14/2021 12:21:00 PM Patient Name: Nani Turner Visit Number: [id number] Discharge Date: 01/19/2021 06:48:00 PM ATTENTION: The Clinical Documentation Specialists (CDI) and [facility] Coding Staff appreciate your assistance in clarifying documentation. Please respond to the clarification below the line at the bottom and electronically sign. The CDI & [facility] Coding staff will review the response and follow-up if needed. Please note: Queries are made part of the Legal Health Record. If you have any questions, please contact the author of this message via ITS. Dr. Josué Infante Your patient has the documented symptom of left foot pain, 01/14 H&P and 01/15 01/18 Medicine progress notes. Additional clarification regarding the etiology/cause of this symptom is requested. History/Risk Factors: 75 y/o female presents to the ED after a fall at home having severe. Medical history osteoarthritis and scleroderma, H&P 01/14. Neuropathy, Ortho consult 01/15. Clinical Indicators: X-ray: 01/14 Left ankle - No acute fracture or dislocation. MRI: 01/19Mild ankle joint effusion consistent with some mild synovitis. Vital Signs: 01/14 B/P 127/56, HR Orthopedic Consult ROM 01/15: Patient does have difficulty with plantar flexion, dorsiflexion, EHL and FHL at the bilateral lower extremities, she states this is due to her neuropathy and has been difficult for years. ED Note 01/14: This was not a trauma admission because I am not admitting patient for a traumatic injury but rather for her chronic immobility exacerbated by left foot pain. Treatment: Medication: 01/14 Dilaudid 0.5 mg Ivp x 1, 01/14 to 01/19 Dilaudid 0.5mg, 01/15 to 01/19 Neurontin 400mg PO TID JETT, 01/17 to 01/19 Tramadol 50mg PO Q 6HR PRN. Consults: Ortho 01/15 Gentle exercise of left lower extremity. Can you please clarify Left Foot Pain? [ ] Left Foot Pain due to Neuropathy [ ] Left Foot Pain due to Effusion [ ] Left Foot Pain due to please specify [ ] Other, please specify [ ] Unable to determine (Template Last Revised: June 2020) Left foot pain due to neuropathy MTDD
== END 2021-01-19 18:48 | DRG 74 ==
LOC: EC 10:22 → 5NMEDONC 12:21
PROVIDERS: ADMIT Internal Medicine; ATTEND Internal Medicine
DX: G57.93 Unspecified mononeuropathy of bilateral lower limbs (principal); S32.2XXA Fracture of coccyx, initial encounter for closed fracture; M34.9 Systemic sclerosis, unspecified; R54 Age-related physical debility; L97.519 Non-pressure chronic ulcer of other part of right foot with unspecified severity; Z20.822 Contact with and (suspected) exposure to COVID-19; E86.0 Dehydration; I73.00 Raynaud's syndrome without gangrene; M25.472 Effusion, left ankle; S99.922A Unspecified injury of left foot, initial encounter; M25.572 Pain in left ankle and joints of left foot; M79.672 Pain in left foot; I10 Essential (primary) hypertension; E78.5 Hyperlipidemia, unspecified; K21.9 Gastro-esophageal reflux disease without esophagitis; H40.9 Unspecified glaucoma; M85.879 Other specified disorders of bone density and structure, unspecified ankle and foot; M19.90 Unspecified osteoarthritis, unspecified site; M25.473 Effusion, unspecified ankle; R91.1 Solitary pulmonary nodule; R79.89 Other specified abnormal findings of blood chemistry; Z79.82 Long term (current) use of aspirin; Z79.02 Long term (current) use of antithrombotics/antiplatelets; Z79.899 Other long term (current) drug therapy; Z91.81 History of falling; Z87.39 Personal history of other diseases of the musculoskeletal system and connective tissue; Z86.69 Personal history of other diseases of the nervous system and sense organs; Z87.448 Personal history of other diseases of urinary system; Z95.820 Peripheral vascular angioplasty status with implants and grafts; Z98.890 Other specified postprocedural states; W18.2XXA Fall in (into) shower or empty bathtub, initial encounter; Y92.002 Bathroom of unspecified non-institutional (private) residence as the place of occurrence of the external cause; Y93.E1 Activity, personal bathing and showering; Z88.1 Allergy status to other antibiotic agents; Z88.5 Allergy status to narcotic agent; Z88.0 Allergy status to penicillin; Z82.49 Family history of ischemic heart disease and other diseases of the circulatory system
CPT/HCPCS: 36415; 70450; 72125; 72170; 72220; 80053; 85025; 87635; 96374; 96375; 99285

== ENCOUNTER → 2022-11-22 | Outpatient (CLI) | payer MEDICARE ==
--- NOTE | 2022-11-23 12:39 | MR ---
EXAMINATION TYPE: MR brain and iac wo/w con DATE OF EXAM: 11/22/2022 10:06 AM CLINICAL INDICATION:Female, 77 years old with history of R42 Dizziness and giddiness; COMPARISON: 02/18/2012 TECHNIQUE: Multi planar, multi sequence imaging was performed through the brain. Specialized thin s equences were obtained through the internal auditory canals. Pre-and post gadolinium sequences were obtained. MR contrast: IV Contrast: 10 cc Gadavist FINDINGS: The porter-white junctions, ventricular system, and cisterns appear unremarkable. Scattered foci of h igh T2 signal intensity are seen within the periventricular white matter additionally peripheral high T2 signal lesions are seen scattered throughout the white matter suggestive of prior injuries.. Midl ine structures show no abnormality. Diffusion-weighted imaging shows no evidence of restricted diffus ion. The susceptibility weighted images do not reveal any evidence for micro-hemorrhage. The bone marrow signal is within normal limits. Paranasal sinuses and mastoid air cells: Clear Visualized orbits: Bilateral aphakia After administration of gadolinium, no abnormal enhancement is seen. The internal auditory canal sequences demonstrate no significant irregularity. The 7th cranial nerve s, 8 cranial nerves, and cerebellar pontine angles appear unremarkable. After the administration kodak olinium, no abnormal enhancement is seen within the internal auditory canals. Vascular loop: None. IMPRESSION: 1. No evidence of intracranial mass nor acute/subacute CVA. 2. No evidence of internal auditory canal abnormality. 3. Nonspecific white matter changes minimal scattered injuries, secondary to small vessel ischemic d isease.
== END | disposition home or self-care (01) ==
LOC: RADMRIMAIN 08:40
PROVIDERS: ATTEND Otolaryngology
DX: I67.82 Cerebral ischemia (principal); R90.82 White matter disease, unspecified; R42 Dizziness and giddiness
CPT/HCPCS: 70553; A9585

== ENCOUNTER → 2023-12-12 | Outpatient (CLI) | payer MEDICARE | END | disposition home or self-care (01) | LOC: LABPRL 15:36 | PROVIDERS: ATTEND Family Medicine | DX: Z00.00 Encounter for general adult medical examination without abnormal findings (principal); I10 Essential (primary) hypertension | CPT/HCPCS: 80053; 80061; 82306; 83036; 84443; 85027 ==